=== PATIENT | male | born 1985 | race Caucasian/White ===

== ENCOUNTER → 2019-12-16 | Outpatient (CLI) | payer OTHER ==
[~2019-12-16] MED LIST: OMNIPAQUE 350 MG/ML, 100ML BOTTLE ONE
== END | disposition home or self-care (01) ==
LOC: CFH 12:47
PROVIDERS: ATTEND Internal Medicine
DX: K63.89 Other specified diseases of intestine (principal); K92.1 Melena; R19.7 Diarrhea, unspecified; R63.4 Abnormal weight loss; K59.00 Constipation, unspecified
CPT/HCPCS: 74177; Q9967

== ENCOUNTER 2020-10-28 10:37 | Outpatient (CLI) | payer OTHER ==
[~2020-10-28 10:37] MED LIST changes: +ACET-1600 PO; +FERR-51 PO; +MV-M1TAB16 PO; -OMNIPAQUE 350 MG/ML, 100ML BOTTLE ONE
== END 2020-10-28 23:59 | disposition home or self-care (01) ==
LOC: WOUND 10:37
PROVIDERS: ATTEND Internal Medicine
DX: Z43.2 Encounter for attention to ileostomy (principal); Z98.890 Other specified postprocedural states; Z85.048 Personal history of other malignant neoplasm of rectum, rectosigmoid junction, and anus
CPT/HCPCS: 99204; 99214

== ENCOUNTER → 2020-11-30 | Outpatient (CLI) | payer OTHER | END | disposition home or self-care (01) | LOC: WOUND 08:07 | PROVIDERS: ATTEND Internal Medicine | DX: Z43.2 Encounter for attention to ileostomy (principal); Z98.890 Other specified postprocedural states; Z85.048 Personal history of other malignant neoplasm of rectum, rectosigmoid junction, and anus | CPT/HCPCS: 99214 ==